=== PATIENT | female | born 1995 | race Caucasian/White ===

== ENCOUNTER → 2018-05-27 | Outpatient (CLI) | payer OTHER ==
[~2018-05-27] MED LIST: CATHETER FLUSH 10 ML SYR IV PRN; FAMO-119 PO; IBUP200C11 PO; LOPE-134 PO; METR-145 PO
--- NOTE | 2018-05-27 13:19 | Diagnostic Imaging Report ---
INDICATION: Abdominal pain After intravenous administration of 5.5 mCi technetium 99m Choletec, scintigraphic imaging over the abdomen is performed. There is normal distribution of activity throughout the liver with prompt appearance of activity in the gallbladder and biliary tree. Activity passes into the small bowel. Intravenous cholecystokinin was administered with gallbladder ejection calculated to be approximately 20%. Values less than 35% are considered abnormal. IMPRESSION: No scintigraphic evidence of acute cholecystitis or biliary obstruction; however, depression of gallbladder ejection fraction may indicate biliary dyskinesia or chronic cholecystitis. Report given to LEISA Ayala at 1:06 p.m. 05/27/2018/jacqueline Dictated by: Dictated on workstation # [id number]
== END ==
LOC: CARD 08:06
PROVIDERS: ATTEND Nurse Practitioner Community Health
DX: R10.11 Right upper quadrant pain (principal)
CPT/HCPCS: 78227

== ENCOUNTER 2018-06-20 05:31 | Outpatient (CLI) | payer OTHER ==
[~2018-06-20] VITALS: Ht 167.6 cm; Wt 66.3 kg
[~2018-06-20 05:31] MED LIST changes: -CATHETER FLUSH 10 ML SYR IV PRN
[2018-06-20] MEDS ORDERED: LISD30CA3 PO (12:29)
[2018-06-20] MEDS ORDERED: CETI10TA17 PO (12:29)
== END 2018-06-20 13:09 | disposition home or self-care (01) ==
LOC: PREOP 05:31
PROVIDERS: ATTEND Surgery
DX: Z01.818 Encounter for other preprocedural examination (principal)

== ENCOUNTER 2018-06-23 06:05 | Day surgery (SDC) | payer OTHER ==
[2018-06-23] VITALS (11 sets, daily range): BP systolic 107–152; BP diastolic 67–97
[~2018-06-23] VITALS: Ht 167.6 cm; Wt 66.3 kg
[~2018-06-23 06:05] MED LIST changes: +CETI10TA17 PO; +LISD30CA3 PO
[2018-06-23] MEDS ORDERED: ceFAZolin INJECTION 1,000 MG in WATER (STERILE) FOR INJECTION 10 ML IV ONE (06:15)
[2018-06-23 06:37] LABS: BASOPHILS # (AUTO) 0.1 10^3/uL (0.0-0.1); BASOPHILS % (AUTO) 1 % (0-10); EOSINOPHILS # (AUTO) 0.1 10^3/uL (0.0-0.3); EOSINOPHILS % (AUTO) 2 % (0-10); HEMATOCRIT 42 % (35-52); HEMOGLOBIN 14.3 G/DL (11.5-16.0); LYMPHOCYTES # (AUTO) 3.5 X 10^3 (1.0-4.0); LYMPHOCYTES % (AUTO) 40 % (12-44); MEAN CORPUSCULAR HEMOGLOBIN 30 PG (25-34); MEAN CORPUSCULAR HGB CONC 34 G/DL (32-36); MEAN CORPUSCULAR VOLUME 88 FL (80-99); MEAN PLATELET VOLUME 9.8 FL (7.4-10.4); MONOCYTES % (AUTO) 11 % (0-12); NEUTROPHILS # (AUTO) 4.1 X 10^3 (1.8-7.8); NEUTROPHILS % (AUTO) 47 % (42-75); PLATELET COUNT 351 10^3/uL (130-400); RED CELL DISTRIBUTION WIDTH 12.7 % (10.0-14.5); WHITE BLOOD COUNT 8.6 10^3/uL (4.3-11.0)
[2018-06-23] MEDS ORDERED: ceFAZolin INJECTION 1,000 MG ONE (06:42)
[2018-06-23] MEDS: LACTATED RINGERS 1,000 ML IV PRN ×2 (06:44→08:20)
[2018-06-23] MEDS ORDERED: SEVOFLURANE (ULTANE) 15 ML INHAL SOLN ONE ×4 (06:51→09:23)
[2018-06-23] MEDS ORDERED: fentaNYL INJECTION 100 MCG/2 ML AMP ONE ×2 (06:51→08:33)
[2018-06-23] MEDS ORDERED: ROCURONIUM 10 MG/ML 5 ML SYRINGE IV ONE (06:51)
[2018-06-23] MEDS ORDERED: MIDAZOLAM 2 MG/2 ML (VERSED) VIAL ONE (06:51)
[2018-06-23] MEDS ORDERED: ONDANSETRON 4 MG/2 ML (SDV) Z0FRAN ONE (06:51)
[2018-06-23] MEDS ORDERED: DEXAMETHASONE 10 MG/ML (DECADRON) 1 ML VIAL ONE (06:51)
[2018-06-23] MEDS ORDERED: LIDOCAINE PF 2% 5 ML (XYLOCAINE) VIAL ONE (06:51)
[2018-06-23] MEDS ORDERED: proPOfol 200 MG/20 ML (DIPRIVAN) VIAL IV ONE (06:51)
--- NOTE | 2018-06-23 07:36 | Progress Note-Pre Operative ---
Pre-Operative Progress Note H&P Reviewed The H&P was reviewed, patient examined and no changes noted. Date Seen by Provider: June 23, 2018 Time Seen by Provider: 07:28 Date H&P Reviewed: June 23, 2018 Time H&P Reviewed: 07:28 Pre-Operative Diagnosis: ruq abdominal pain, biliary dyskinesia DARY WRIGHT DO June 23, 2018 07:36
[2018-06-23] MEDS ORDERED: morphine INJ 10 MG/ML 1ML (SYR OR VIAL) IVP ONE (08:00)
[2018-06-23] MEDS ORDERED: fentaNYL INJECTION 100 MCG/2 ML AMP IVP ONE (08:00)
[2018-06-23] MEDS ORDERED: MEPERIDINE (DEMEROL) INJ 50 MG/ML IVP ONE (08:00)
[2018-06-23] MEDS ORDERED: ONDANSETRON 4 MG/2 ML (SDV) Z0FRAN IVP PRN (08:00)
[2018-06-23] MEDS ORDERED: GLYCOPYRROLATE 0.2 MG/ML (ROBINUL) 2 ML VIAL ONE (08:49)
[2018-06-23] MEDS ORDERED: NEOSTIGMINE 1 MG/ML 5 ML SYRINGE ONE (08:49)
[2018-06-23] MEDS ORDERED: LIDOCAINE 1% INJ 20 ML 20 ML VIAL ONE (08:54)
[2018-06-23] MEDS ORDERED: IOPAMIDOL 61% 30 ML (ISOVUE 300) VIAL IV ONE (08:54)
[2018-06-23] MEDS ORDERED: BUP/EPI 0.5% 1:200,000 (SENSORCAINE) 30 ML VIAL ONE (08:54)
[2018-06-23] MEDS ORDERED: DOCU-143 PO (09:20)
[2018-06-23] MEDS ORDERED: ACHD5005 PO (09:20)
--- NOTE | 2018-06-23 09:20 | Progress Note-Post Operative ---
Post-Operative Progess Note Surgeon (s)/Party Coordinator (s) Surgeon DARY WRIGHT DO Party Coordinator: na Pre-Operative Diagnosis ruq abdominal pain, biliary dyskinesia Post-Operative Diagnosis Same Procedure & Operative Findings Date of Procedure 06/23/18 Procedure Performed/Findings lap connor c ioc Anesthesia Type gen Estimated Blood Loss Estimated blood loss (mL): min Specimens/Packing Specimens Removed gallbladder DARY WRIGHT DO June 23, 2018 09:20
[2018-06-23] MEDS ORDERED: morphine INJ 10 MG/ML 1ML (SYR OR VIAL) ONE ×2 (09:21→09:43)
--- NOTE | 2018-06-23 09:22 | Discharge Inst-Simple/Standard ---
Discharge Inst-Standard Discharge Medications New, Converted or Re-Newed RX: RX on Chart Patient Instructions/Follow Up Plan of Care/Instructions/FU: 2 weeks Meghna Activity as Tolerated: No Discharge Diet: Regular Diet Other Inst to Patient Follow up Appt: Make appointment for 2 weeks. Instructions: No lifting greater than 10 pounds. No strenuous activity. May shower in 24 hours, no tub bath or soaking. Use incentive spirometer at home as directed. No Smoking Skin/Wound Care: You have special glue over incisions it will fall off on its own. Symptoms to Report: Appetite Changes, Extremity Discoloration, Numbness/Tingling, Swelling Increased , Bleeding Excessive, Eyesight Changes, Pain Increased, Urine Color Change, Constipation(Persistent), Fever over 101 degree F, Pain/Pressure in chest, Urinating Difficulty, Cough Up/Vomit Blood, Heart Beat Irreg/Pounding, Pain/ Pressure in jaw, Vaginal Bleeding Increase, Cramps in feet or legs, Lightheadedness, Pain/Pressure in shoulder, Diarrhea(Persistent), Memory Changes Suddenly, Questions/Concerns, Weight gain consecutive days, Dizziness/ Fainting, Nausea/Vomiting, Shortness of Breath, Weight gain over 2 pounds. If eyes or skin turn yellow notify physician. If questions or concerns contact your physician Or seek help at emergency department. DARY WRIGHT DO June 23, 2018 09:22
[2018-06-23] MEDS ORDERED: HYDROcodone/APAP 5 MG/325 MG (LORTAB) TAB ONE (11:16)
[2018-06-23] MEDS ORDERED: HYDROcodone/APAP 5 MG/325 MG (LORTAB) TAB PO ONE (11:45)
--- NOTE | 2018-06-23 12:11 | Anesthesia-General Post-Op ---
General Patient Condition Mental Status/LOC: Same as Preop Cardiovascular: Satisfactory Nausea/Vomiting: Absent Respiratory: Satisfactory Pain: Controlled Complications: Absent Post Op Complications Complications None Follow Up Care/Instructions Patient Instructions None needed. Anesthesia/Patient Condition Patient Condition Patient is doing well, no complaints, stable vital signs, no apparent adverse anesthesia problems. No complications reported per nursing. KELI ONTIVEROS CRNA June 23, 2018 12:11
--- NOTE | 2018-06-23 12:16 | NUR ---
DISREGARD INTERVENTION COLUMN TIMED FOR 1200. PATIENT WENT HOME AT 1150.
--- NOTE | 2018-06-23 12:53 | Diagnostic Imaging Report ---
Fluoroscopy. Indication: Abdominal pain. Fluoroscopic assistance was provided for Dr. Coffman during his laparoscopic cholecystectomy procedure. 8 seconds of fluoroscopy time was utilized. 29 spot films of the right upper quadrant were received. There is a laparoscopic device in place. There is opacification of the common bile duct via a cystic duct catheter. The common bile duct is perhaps slightly dilated. There is no definite defect within the duct although a portion of the duct is partially obscured by one of the laparoscopic devices. There is contrast extending into the small bowel. Impression: Fluoroscopic assistance provided for Dr. Coffman. Dictated by: Dictated on workstation # [id number]
--- NOTE | 2018-06-23 14:01 | OPERATIVE REPORT ---
DATE OF SERVICE: 06/23/2018 PREOPERATIVE DIAGNOSES: Right upper quadrant abdominal pain, biliary dyskinesia. POSTOPERATIVE DIAGNOSES: Right upper quadrant abdominal pain, biliary dyskinesia. PROCEDURE: Laparoscopic cholecystectomy with intraoperative cholangiogram. SURGEON: Dary Coffman DO ANESTHESIA: General. ESTIMATED BLOOD LOSS: Minimal. COMPLICATIONS: None. INDICATIONS: The patient is a 23-year-old female with right upper quadrant abdominal pain and findings consistent with biliary dyskinesia. She understands risks and benefits of procedure and wished to proceed with procedure. Consent was signed in the chart. PROCEDURE IN DETAIL: The patient was taken to the operating suite, prepped and draped in sterile fashion. Surgical pause was performed. A 12 mm incision was made just above the umbilicus. Chris dissection was taken down to the fascia, which was then scored, grasped and elevated. A 0 Vicryl was placed in a [id number] fashion for closure at the end of the case. A balloon trocar was inserted in the abdomen and pneumoperitoneum was achieved. Under direct visualization of the laparoscope, a 5 mm trocar was placed in the subxiphoid region and two 5 mm trocars were placed in the right upper quadrant. Gallbladder was grasped, elevated. Multiple adhesions with omentum caked to the gallbladder and liver, which was then began to be taken down with [place] and cautery. A small capsular tear on the liver was made and these adhesions were taken down. The cystic duct and cystic artery were dissected out. Clips were placed on the proximal and distal portion of the cystic artery. This was then transected. Clip was placed on the distal portion of the cystic duct, which was then partially transected. Arrow catheter was inserted and cholangiogram was performed. There were no filling defects. Contrast made its way into the duodenum. The catheter was removed. Clips were placed on the proximal portion of the cystic duct and the duct was then completely transected. Hook cautery used to dissect the gallbladder from gallbladder fossa achieving hemostasis. Once removed, it was placed in an Endobag and removed through the 12 mm trocar site. The abdomen was then irrigated and suctioned with copious amounts of irrigation. No other pathology noted. The abdomen was then desufflated and the trocars were removed. A 0 Vicryl placed at the beginning of the case was then tied closing the fascial defect of the 12 mm trocar site. The skin was then closed using 4-0 Monocryl in a subcuticular fashion. The skin was then washed and dried and Skin Affix was placed over the incision. The patient tolerated procedure well without any complications and taken to recovery room in stable condition. Job ID: [id number] DocumentID: [id number] Dictated Date: 06/23/2018 09:26:33 Traveling Sales Executive Date: 06/23/2018 14:00:25 Dictated By: DARY COFFMAN DO
== END 2018-06-23 11:50 | disposition home or self-care (01) ==
LOC: SDC 06:05
PROVIDERS: ATTEND Surgery
DX: K81.1 Chronic cholecystitis (principal); K21.9 Gastro-esophageal reflux disease without esophagitis; F41.9 Anxiety disorder, unspecified; Z79.899 Other long term (current) drug therapy
CPT/HCPCS: 36415; 84703; 85025; 87081; 94664